=== PATIENT | male | born 1970 | race Caucasian/White ===

== ENCOUNTER 2024-06-15 20:04 | Emergency (ER) | payer OTHER, SELFPAY ==
[2024-06-15 20:07] VITALS: BP 190/105
[2024-06-15 22:24] VITALS: BP 145/97
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
[2024-06-15] MEDS: MOTRIN 600 MG PO (22:49)
[2024-06-15] MEDS: ULTRAM 50 MG PO (22:49)
== END 2024-06-15 23:02 | disposition home or self-care (01) ==
LOC: EMR 20:04
PROVIDERS: EMERGENCY PHYSICIAN Student in an Organized Health Care Education/Training Program; FAMILY PHYSICIAN Internal Medicine
DX: S63.501A Unspecified sprain of right wrist, initial encounter (principal); W23.0XXA Caught, crushed, jammed, or pinched between moving objects, initial encounter
CPT/HCPCS: 99283; 29125; 73110; 73130